=== PATIENT | male | born 1970 | race African-American/Black ===

== ENCOUNTER 2022-09-07 10:14 | Emergency (ER) | payer OTHER ==
[~2022-09-07] VITALS: Ht 172.7 cm; Wt 93.0 kg
[2022-09-07 10:43] LABS: BASOPHILS % 0.2 % (0.0-1.0); EOSINOPHILS # (AUTO) 0.1 (0.0-0.4); EOSINOPHILS % 0.7 % (0.0-6.0); HEMOGLOBIN 14.9 g/dL (14.0-18.0); LYMPHOCYTES # (AUTO) 2.4 (1.0-3.2); MEAN CORPUSCULAR HEMOGLOBIN 27.4 pg (28-32); MEAN CORPUSCULAR HGB CONC 34.7 g/dL (31-35); MEAN CORPUSCULAR VOLUME 79.2 fL (81-99); MONOCYTES # (AUTO) 0.9 (0.2-0.8); MONOCYTES % 8.6 % (4.4-11.3); NEUTROPHILS # (AUTO) 6.9 (2.1-6.9); NEUTROPHILS % 67.1 % (38.7-80.0); PLATELET COUNT 145 x10e3/uL (140-360); RED BLOOD COUNT 5.43 x10e6/uL (4.3-5.7); RED CELL DISTRIBUTION WIDTH 15.2 % (11.7-14.4)
[2022-09-07 10:59] LABS: ALBUMIN 4.4 g/dL (3.5-5.0); ANION GAP 19.7 mmol/L (8-16); CREATININE, SERUM 1.9 mg/dL (0.72-1.25); POTASSIUM 3.7 mmol/L (3.5-5.1)
[2022-09-07] MEDS ORDERED: LACTATED RINGER'S 1,000 ML INJ ONE (11:00)
[2022-09-07 12:33] VITALS: BP 155/79; PULSE 74; RESP 18; O2SAT 99
== END 2022-09-07 12:30 | disposition home or self-care (01) ==
LOC: ER 10:22
DX: R55 Syncope and collapse (principal); R42 Dizziness and giddiness; T67.5XXA Heat exhaustion, unspecified, initial encounter; I10 Essential (primary) hypertension; R94.31 Abnormal electrocardiogram [ECG] [EKG]
CPT/HCPCS: 36415; 71045; 80053; 83880; 84484; 85025; 93005; 99284; J7121